=== PATIENT | male | born 1950 | race Caucasian/White ===

== ENCOUNTER 2024-06-24 09:25 | Emergency (ER) | payer MEDICARE, OTHER, SELFPAY ==
[2024-06-24 09:30] VITALS: BP 148/88
--- NOTE | 2024-06-24 09:44 | ED.GENMED ---
History of Present Illness
General
Chief Complaint: Breathing Problem
Source: patient
Exam Limitations: none
Time Seen by Provider: 06/24/24 09:44
Nursing documentation reviewed up to this point in time: agreed with
History of Present Illness
History of Present Illness:
74-year-old male with history HTN, HLD present with cough and shortness of breath starting 1 week ago gradually increasing and more persistent yesterday. He went to urgent care yesterday and had a chest x-ray and they recommended he come here.
Patient has copy of chest x-ray report with him. The impression was hyperinflated lungs suggestive of COPD, mild bilateral hilar vascular congestion, cardiomegaly, no consolidation.
Patient denies fever or chills. He denies N/B/D/C. He denies chest pain. He was a former smoker, quit 50 years ago.
Past History
Past History
ED Past Medical History: HTN and Hypercholesterolemia
ED Past Surgical History: Orthopedic
Social History
Tobacco: Former smoker (quit 50 yrs ago)
Alcohol: Occasional
Personal:
Living: with family
Employment: Retired
Family History
Family History: Other (Noncontributory)
Review of Systems
Review of Systems
Allergies reviewed?: Yes
All Other Systems: ROS reviewed and negative except as documented in HPI and ROS
Constitutional: Denies fever or chills
Respiratory: Reports cough and trouble breathing
Cardiac: Denies chest pain
ABD/GI: Denies abdominal pain, nausea, vomiting, diarrhea or anorexia
: Denies dysuria, frequency or difficulty voiding
Musculoskeletal: Reports no symptoms
Skin: Reports no symptoms
Neurological: Reports no symptoms
Phy Exam
Physical Exam
Physical Exam:
GENERAL: No acute distress. A&Ox3.
CONSTITUTIONAL: Afebrile.
EYES: clear, conjunctivae normal
ENMT: moist mucus membranes, Pharynx nl
RESPIRATORY: Regular respirations, mildly dyspneic, nonlabored, lungs clear, intermittent cough
CARDIOVASCULAR: Regular rate and rhythm, no murmurs, no rubs.
GI: Soft, nontender, normal BS
MUSCULOSKELETAL: Moves with ease. Well perfused. No edema
SKIN: Warm, dry, pink
PSYCH: Normal mood and affect. Well kept, interactive and appropriate
NEUROLOGIC: Awake, alert and oriented. No focal neurological deficits
Scores
Heart Failure Risk
Heart Failure Risk Score: Not Applicable
Course
Orders/Labs/Results
Orders:
Orders
06/24/24 09:49
IV Insert/Care/Rem.- Treatment PRN
06/24/24 09:50
Electrocardiogram (*1) Stat
Reason for Study: Other
Other Reason for Exam: chest pain
EKG- Treatment ONCE
Ipratropium/Albuterol Sulfate [Duoneb] 3 ml INH R NOW STA
CR Chest - 2 Views Urgent
Comment:
Reason For Exam: SOB
06/24/24 10:02
COVID-19 Antigen Urgent
Source: Nasal Swab
Complete Blood Count/With Diff Urgent
Comprehensive Metabolic Panel Urgent
NT-proBNP Urgent
Troponin I Urgent
Influenza A+B Rapid Molecular Urgent
ARIAS Source: Nasal Swab
Specimen Description:
06/24/24 11:21
Acetaminophen [Tylenol] 1,000 mg PO NOW STA
Abnormal Lab Results
06/24/24
10:02
RBC 4.27 L 10^6/uL
(4.70-6.10)
MCH 31.4 H pg
(27.0-31.0)
Absolute Neuts (auto) 8.3 H 10^3/uL
(1.4-6.5)
Neutrophils % 79.6 H %
(42.2-75.2)
Lymphocytes % 11.6 L %
(20.5-51.1)
Glucose 107 H mg/dl
(70-99)
06/24/24 10:02
06/24/24 10:02
Vital Signs
Initial and Last Documented VS:
Initial Vital Signs
Temp Pulse Resp BP Pulse Ox
98.5 F 85 20 148/88 94
06/24/24 09:30 06/24/24 09:30 06/24/24 09:30 06/24/24 09:30 06/24/24 09:30
Last Documented Vital Signs
Temp Pulse Resp BP Pulse Ox
98.6 F 84 18 133/82 95
06/24/24 12:45 06/24/24 12:45 06/24/24 12:45 06/24/24 12:00 06/24/24 12:45
MDM/Problems Addressed
Differential Diagnosis Includes:
CHF, asthma, COPD, PNA, Covid
MDM/Problems Addressed:
74-year-old male with history HTN, HLD present with cough and shortness of breath starting 1 week ago gradually increasing and more persistent yesterday. He went to urgent care yesterday and had a chest x-ray and they recommended he come here.
Patient has copy of chest x-ray report with him. The impression was hyperinflated lungs suggestive of COPD, mild bilateral hilar vascular congestion, cardiomegaly, no consolidation.
Patient denies fever or chills. He denies N/B/D/C. He denies chest pain. He was a former smoker, quit 50 years ago.
Afebrile, Lungs CTA, mildly dyspneic, intermittent cough
EKG: NSR
CBC: No clinically significant abnormality
CMP: Normal
Troponin normal
BNP normal
Covid neg
Flu neg
11:20 a.m.
Pt states 'not much' improvement in breathing since Duoneb. Now has a headache. Tylenol ordered
12:30 p.m.
CXR radiology report read: IMPRESSION:
No acute disease of the chest.
Mild cardiomegaly.
Pt ambulated up and down hallway w pulse ox maintaining at 95% RA
Will treat for acute bronchitis rx for Albuterol Inhaler and Prednisone taper sent to his pharmacy
Return instructions discussed.
*Pulse Oximetry
Patient hypoxic: no
*EKG
EKG Intrepretation Date: 06/24/24
Interpretation: normal
Heart Rate: 74
Rate: normal
Rhythm: sinus
[place]: normal axis
Interval: normal interval
QRS Pattern: normal QRS
Ischemia: no ischemia
*Critical Care Note
Total Time (30-74mins, 75-104mins- exclusive of procedures): Not Applicable
ED Attending Note
-
Portions of this chart may have been created with voice recognition software.� Occasional wrong word or��sound alike� substitutions may have occurred due to the inherent limitations of voice recognition software.
Discharge Plan
Departure
Patient Disposition: Home (Routine Discharge)
Date of Disposition: 06/24/24
Time of Disposition: 12:45
Patient with high blood pressure during this ER visit?: No
Condition: Fair
Discharge Problem:
Acute bronchitis
Instructions: Acute Bronchitis, Adult (DC), Shortness of Breath (Dyspnea) (DC), Prednisone
Prescriptions:
New
prednisone 10 mg Tablet
See Rx Instructions .ROUTE .COMPLEX Qty: 30 0RF
Rx Instructions:
Take By Mouth:
40 mg daily x3 days, 30 mg daily x3 days,
20 mg daily x3 days, 10 mg daily x3 days.
albuterol sulfate 90 mcg/actuation HFA aerosol inhaler
2 puff inhalation Q6H PRN (Reason: shortness of breath or wheezing) Qty: 6.7 0RF
No Action
prednisone 50 MG tablet
50 mg PO DAILY Qty: 5 0RF
famotidine 20 MG tablet
20 mg PO BID Qty: 20 0RF
cetirizine 10 MG tablet
10 mg PO DAILY Qty: 20 0RF
Referrals:
Kirstin Durham PA-C [Family Provider] - As needed
Activity Restrictions/Additional Instructions:
As we discussed, I sent a prescription to your pharmacy for an albuterol inhaler to use 2 puffs every 6 hours as needed for cough/wheezing/trouble breathing
I also sent a prescription for prednisone (steroid) taper for the inflammation in your lungs caused by the bronchitis
See your doctor in 3 to 5 days if not much improvement by then. See your doctor in 2 weeks if not 100% better by then.
Return here immediately for worsening difficulty breathing, fever above 100.5 NOT relieved with Tylenol, or feeling sicker in any way.
Interventions
Interventions:
*Risk Screen - Suicide Last Done: 06/24/24 10:14
*General Assessment Last Done: 06/24/24 10:14
*Neglect/Abuse Screening Last Done: 06/24/24 10:14
ED- Fall Risk Assessment Last Done: 06/24/24 10:14
*ED COVID-19 Vaccine History Last Done: 06/24/24 10:14
*Nursing Disposition Last Done: 06/24/24 13:01
ED- Cardiac Assessment Last Done: 06/24/24 10:14
ED- Pulmonary Assessment Last Done: 06/24/24 10:14
Discharge Date and Time
Discharge Date/Time: 06/24/24 13:01
Print Language: QATARI
[2024-06-24 09:56] VITALS: BMI 26.2
[2024-06-24 10:01] VITALS: BP 136/84
[2024-06-24] MEDS: DUONEB 3 ML INH (10:03)
[2024-06-24 10:15] LABS: % Basophils 0.3 % (0-2); % Immature Granulocytes 0.4 % (0-0.5); % Lymphocytes 11.6 % (20.5-51.1); % Monocytes 6.1 % (1.7-9.3); % Neutrophils 79.6 % (42.2-75.2); Absolute Eosinophils 0.2 10^3/uL (0-0.7); Absolute Lymphocytes 1.2 10^3/uL (1.2-3.4); Absolute Monocytes 0.6 10^3/uL (0.1-0.6); Absolute Neutrophils 8.3 10^3/uL (1.4-6.5); Hemoglobin 13.4 g/dL (13.0-18.0); Mean Corp Hgb Conc. 34.4 g/dL (33.0-37.0); Mean Corpuscular Hgb 31.4 pg (27.0-31.0); Mean Corpuscular Volume 91.3 fL (80.0-94.0); Mean Platelet Volume 8.8 fL (7.4-10.4); Nucleated Red Blood Cells % 0 % (-); Platelet Count 282 10^3/uL (130-400); Red Blood Cell Count 4.27 10^6/uL (4.70-6.10); Red Cell Dist. Width 13.3 % (11.5-14.5); White Blood Cell Count 10.5 10^3/uL (4.8-10.8)
[2024-06-24 10:27] LABS: ALT (SGPT) 36 U/L (0-50); AST (SGOT) 32 U/L (17-59); Albumin 4.4 g/dl (3.5-5.0); Alkaline Phosphatase 107 U/L (38-126); Blood Urea Nitrogen 15 mg/dl (9-20); Calcium 9.4 mg/dl (8.4-10.2); Carbon Dioxide 26 mmol/L (22-30); Chloride 101 mmol/L (98-107); Estimated Creatinine Clearance 76 ml/min; Glucose 107 mg/dl (70-99); Potassium 4.3 mmol/L (3.5-5.1); Sodium 141 mmol/L (135-145); Total Bilirubin 0.7 mg/dl (0.2-1.3); Total Protein 7.1 g/dl (6.3-8.2); eGFR > 60.00
[2024-06-24 10:35] LABS: COVID-19 Antigen Negative (Negative)
[2024-06-24 10:41] LABS: NT-proBNP 33.3 pg/ml; Troponin I < 0.012 ng/ml
[2024-06-24 11:00] VITALS: BP 138/79
[2024-06-24] MEDS: TYLENOL 1000 MG PO (11:28)
[2024-06-24 11:31] VITALS: BP 131/71
[2024-06-24 12:00] VITALS: BP 133/82
== END 2024-06-24 13:01 | disposition home or self-care (01) ==
LOC: EMR 09:25
PROVIDERS: Registered Nurse; EMERGENCY PHYSICIAN Student in an Organized Health Care Education/Training Program; FAMILY PHYSICIAN Physician Assistant Medical
DX: J20.9 Acute bronchitis, unspecified (principal); R51.9 Headache, unspecified; I10 Essential (primary) hypertension; E78.00 Pure hypercholesterolemia, unspecified; I51.7 Cardiomegaly; Z87.891 Personal history of nicotine dependence; Z11.52 Encounter for screening for COVID-19
CPT/HCPCS: 99284; 94640; 71046; 80053; 83880; 84484; 85025; 87502; 87811; 93005